=== PATIENT | male | born 1960 | race Caucasian/White ===

== ENCOUNTER 2016-11-18 09:32 | Emergency (ER) | payer MEDICAID ==
[2016-11-18 09:33] VITALS: BMI 37.2
[2016-11-18] MEDS ORDERED: Oxycodone/Acetaminophen 5/325 mg Tab PO STA (10:06)
--- NOTE | 2016-11-18 10:06 | ED PDOC ---
Arrival/HPI - General Chief Complaint: Lower Extremity Problem/Injury Time Seen by Provider: 11/18/16 09:48 Historian: Patient - History of Present Illness Narrative History of Present Illness (Text): 11/18/16 09:59 56 year old male, pmh including chronic knee pain and hypertension, penicillin allergy, complaining of Lt. knee and calf pain x 4 days with no fall or trauma. Pt. stated that that he has chronic lt. knee pain which they advised him for the surgery 10 years ago but he never did, more painful for the past 4 days, no fall or trauma, admits swelling, no skin redness on the knee, able to bend and extend with no limitation, able to walk and bear weight, no fever or chills, no night sweat, no rash, no numbness or tingling, no other medical or psychological complaints. Past Medical History - Provider Review Nursing Documentation Reviewed: Yes - Infectious Disease Hx of Infectious Diseases: None - Tetanus Immunization Tetanus Immunization: Unknown - Cardiac Hx Cardiac Disorders: No Hx Hypertension: Yes - Pulmonary Hx Respiratory Disorders: No - Neurological Hx Neurological Disorder: No - HEENT Hx HEENT Disorder: No - Renal Hx Renal Disorder: No - Endocrine/Metabolic Hx Endocrine Disorders: No - Hematological/Oncological Hx Blood Disorders: No - Integumentary Hx Dermatological Disorder: No - Musculoskeletal/Rheumatological Other/Comment: KNEE PAIN, EDEMA - Gastrointestinal Hx Gastroesophageal Reflux: Yes - Psychiatric Hx Psychophysiologic Disorder: No Hx Depression: No Hx Emotional Abuse: No Hx Physical Abuse: No Hx Substance Use: No - Surgical History Hx Orthopedic Surgery: Yes (left leg) Other/Comment: HERNIA REPAIR - Suicidal Assessment Feels Threatened In Home Enviroment: No Family/Social History - Physician Review Nursing Documentation Reviewed: Yes Family/Social History: Unknown Family HX Smoking Status: Never Smoked Hx Alcohol Use: No Hx Substance Use: No Hx Substance Use Treatment: No Allergies/Home Meds Allergies/Adverse Reactions: Allergies Penicillins Allergy (Verified 11/18/16 09:43) RASH Home Medications: Home Meds Medication Instructions Recorded Confirmed Calcium Carbonate [Calcium] 600 mg PO DAILY 11/18/16 11/18/16 Ergocalciferol (Vitamin D2) 1 cap PO WED 11/18/16 11/18/16 [Vitamin D2] Lisinopril [Zestril] 10 mg PO DAILY 11/18/16 11/18/16 Loratadine [Claritin] 10 mg PO DAILY 11/18/16 11/18/16 Omeprazole 1 cap PO DAILY 11/18/16 11/18/16 Review of Systems - Review of Systems Constitutional: absent: Fatigue, Fevers Eyes: absent: Vision Changes ENT: absent: Hearing Changes Respiratory: absent: SOB, Cough Cardiovascular: absent: Chest Pain Gastrointestinal: absent: Abdominal Pain, Nausea, Vomiting Musculoskeletal: Arthralgias, Joint Swelling. absent: Back Pain, Neck Pain, Myalgias Skin: absent: Rash, Pruritis Neurological: absent: Headache, Dizziness Physical Exam Vital Signs Reviewed: Yes Vital Signs Temp Pulse Resp BP Pulse Ox 11/18/16 11:50 98 F 75 20 150/75 99 11/18/16 11:17 72 16 150/96 H 100 11/18/16 10:10 98.9 F 73 18 174/92 H 100 11/18/16 09:47 98.8 F 85 16 162/99 H 98 Temperature: Afebrile Blood Pressure: Hypertensive Pulse: Regular Respiratory Rate: Normal Appearance: Positive for: Well-Appearing, Non-Toxic, Comfortable Pain Distress: Moderate Mental Status: Positive for: Alert and Oriented X 3 - Systems Exam Head: Present: Atraumatic, Normocephalic Pupils: Present: PERRL Extroacular Muscles: Present: EOMI Conjunctiva: Present: Normal Mouth: Present: Moist Mucous Membranes Neck: Present: Normal Range of Motion Respiratory/Chest: Present: Clear to Auscultation, Good Air Exchange. No: Respiratory Distress, Accessory Muscle Use Cardiovascular: Present: Regular Rate and Rhythm, Normal S1, S2. No: Murmurs Abdomen: Present: Normal Bowel Sounds. No: Tenderness, Distention, Peritoneal Signs Back: Present: Normal Inspection Upper Extremity: Present: Normal Inspection, Normal ROM, NORMAL PULSES, Neurovascularly Intact, Capillary Refill < 2s, Other (LLE: +ttp on the posterior calf and the lt. knee region around the medial aspect, no erythematous or cellulitis, no signs of septic joint, FROM without limitation, sensation intact, motor 5/5, visible varicose vein on the LLE, +DPPT pulses, capillary refill< 2 seconds, neurovascular intact. ). No: Cyanosis, Edema, Erythema, Deformity Lower Extremity: Present: Normal Inspection. No: Edema Neurological: Present: GCS=15, Speech Normal, Motor Func Grossly Intact, Gait Normal, Memory Normal Skin: Present: Warm, Dry, Normal Color. No: Rashes Psychiatric: Present: Alert, Oriented x 3, Normal Insight, Normal Concentration Medical Decision Making ED Course and Treatment: 11/18/16 10:10 -LLE venuous doppler -Lt. knee xray -Percocet/toradol -Observe and reassess 11/18/16 11:24 -LLE Venuous Doppler: As per preliminary report, no acute DVT. -Lt. knee xray: +degenerative joint changes, no fracture or dislocation. -Pain improved, clinically there is no signs of infection. -Yuri wrap and crutches applied. -Discharge home with celebrex, voltaren gel, yuri wrap, crutches, ice compression , please follow up with your own pmd and orthopedic within 2 days for further evaluation, return to the ER for any new or worsening signs or symptoms. - RAD Interpretation Radiology Orders: 11/18/16 10:06 KNEE WITH PATELLA LEFT 3 VIEW [RAD] Stat DUPLEX LOWER EXTRM VEIN LEFT [US] Stat Lt. knee xray:Tricompartmental osteoarthritis. Otherwise unremarkable. LLE Venuous Doppler: As per preliminary report, no acute DVT. Associate Automation Engineer: Radiologist - Medication Orders Current Medication Orders: Discontinued Medications Ketorolac Tromethamine (Toradol) 60 mg IM STAT STA Stop: 11/18/16 10:07 Last Admin: 11/18/16 10:19 Dose: 60 mg MAR Pain Assessment Document 11/18/16 10:19 CNR (Rec: 11/18/16 10:20 CNR [place] [id number]) Pain Reassessment Is this a pain reassessment? Yes Sleep Is patient sleeping during reassessment? No Presence of Pain Presence of Pain Yes Pain Scale Used Pain Scale Used Numeric Location Left, Right or Bilateral Left Pain Location Body Site Knee IM Administration Charges Document 11/18/16 10:19 CNR (Rec: 11/18/16 10:20 CNR [email or web address] Charges for Administration # of IM Administrations 1 Oxycodone/Acetaminophen (Percocet 5/325 Mg Tab) 1 tab PO STAT STA Stop: 11/18/16 10:07 Last Admin: 11/18/16 10:20 Dose: 1 tab MAR Pain Assessment Document 11/18/16 10:20 CNR (Rec: 11/18/16 10:20 CNR [email or web address] Pain Reassessment Is this a pain reassessment? Yes Sleep Is patient sleeping during reassessment? 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 Disposition/Present on Arrival - Present on Arrival Any Indicators Present on Arrival: No History of DVT/PE: No History of Uncontrolled Diabetes: No Urinary Catheter: No History of Decub. Ulcer: No History Surgical Site Infection Following: None - Disposition Have Diagnosis and Disposition been Completed?: Yes Diagnosis: Knee pain, Degenerative joint disease of knee Disposition: HOME/ ROUTINE Disposition Time: 11:26 Patient Plan: Discharge Condition: IMPROVED Additional Instructions: -Discharge home with celebrex, voltaren gel, yuri wrap, crutches, ice compression , please follow up with your own pmd and orthopedic within 2 days for further evaluation, return to the ER for any new or worsening signs or symptoms. Prescriptions: Celecoxib [CeleBREX] 200 mg PO BID PRN #40 cap PRN Reason: Other Diclofenac Sodium [Voltaren] 1 appful TP BID #60 g Referrals: [facility] [Primary Care Provider] - Follow up with primary Nuno Martin DO [Staff Provider] - Follow up with primary [facility] [Outside] - Follow up with primary [facility] [place] [Outside] - Follow up with primary Forms: [employer] (Korean), WORK NOTE
[2016-11-18 11:52] VITALS: BP 150/75; PULSE 75; RESP 20; TEMP 98; O2SAT 99
--- NOTE | 2016-11-18 11:53 | RAD ---
PROCEDURE: Left Knee Radiographs. HISTORY: Pain. COMPARISON: None. FINDINGS: BONES: No acute fracture. JOINTS: Tricompartmental osteoarthritis predominantly involving the medial and patellofemoral compartments. No articular erosions. JOINT EFFUSION: None. OTHER FINDINGS: None. IMPRESSION: Tricompartmental osteoarthritis. Otherwise unremarkable.
--- NOTE | 2016-11-18 15:43 | US ---
PROCEDURE: Left lower extremity venous US HISTORY: Leg pain and swelling. Evaluate for DVT. PHYSICIAN(S): Edwar Mortensen MD. TECHNIQUE: Duplex sonography and color-flow Doppler with graded compression were used to evaluate the deep venous system of the left lower extremity. FINDINGS: The visualized deep venous system of the left lower extremity is sonographically normal and compressible. Normal wave forms and augmentation are seen. There is no sonographic evidence for deep venous thrombosis in the visualized segments of the left lower extremity. IMPRESSION: 1. No sonographic evidence for deep venous thrombosis in the visualized segments of the left lower extremity.
== END 2016-11-18 11:52 | disposition home or self-care (01) ==
LOC: ED 09:32
DX: M25.562 Pain in left knee (principal); M17.12 Unilateral primary osteoarthritis, left knee
CPT/HCPCS: 73562; 93971; 96372; 99285; J1885